=== PATIENT | male | born 1970 | race Caucasian/White ===

== ENCOUNTER 2019-01-15 08:30 | Emergency (ER) | payer BC ==
[2019-01-15 09:23] VITALS: BP 115/73
--- NOTE | 2019-01-15 10:05 | UC ---
Nausea/Vomiting/Diarrhea HPI - HPI Summary HPI Summary: 48-year-old male comes in with chief complaint of diarrhea. 2 days ago patient started with nausea. He did not vomit. He then started diarrhea on the same day. Diarrheas been watery. Has not seen any blood in the diarrhea. No fevers measured. He does get intermittent abdominal cramping but that goes away. He does feel slightly dehydrated. Yesterday he had improved some and is able to eat solid foods but overnight the diarrhea returned. Does have some nausea. Been having diarrhea about every 2 hours overnight. - History of Current Complaint Chief Complaint: UCGI Stated Complaint: DIARRHEA Time Seen by Provider: 01/15/19 09:40 Pain Intensity: 0 - Allergies/Home Medications Allergies/Adverse Reactions: Allergies Allergy/AdvReac Type Severity Reaction Status Date / Time No Known Allergies Allergy Verified 01/15/19 09:15 Home Medications: Home Medications Acetaminophen [Tylenol Extra Strength] 100 mg PO Q6H PRN 01/15/19 [History Confirmed 01/15/19] PMH/Surg Hx/FS Hx/Imm Hx Previously Healthy: Yes Cardiovascular History: Hypertension - Surgical History Surgical History: Yes Surgery Procedure, Year, and Place: dental surgery (teeth extraction) - Family History Known Family History: Positive: Non-Contributory - Social History Alcohol Use: Weekly Substance Use Type: None Smoking Status (MU): Former Smoker When Did the Patient Quit Smoking/Using Tobacco: 2008 Review of Systems All Other Systems Reviewed And Are Negative: Yes Constitutional: Positive: Other - SEE HPI Skin: Positive: Negative Eyes: Positive: Negative ENT: Positive: Negative Respiratory: Positive: Negative Cardiovascular: Positive: Negative Gastrointestinal: Positive: Abdominal Pain, Diarrhea, Nausea Genitourinary: Positive: Negative Motor: Positive: Negative Neurovascular: Positive: Negative Musculoskeletal: Positive: Negative Neurological: Positive: Negative Psychological: Positive: Negative Is Patient Immunocompromised?: No Physical Exam Triage Information Reviewed: Yes Appearance: Well-Appearing, No Pain Distress, Well-Nourished Vital Signs: Initial Vital Signs Temp 99.1 F 01/15/19 09:16 Pulse 87 01/15/19 09:16 Resp 20 01/15/19 09:16 BP 115/73 01/15/19 09:16 Pulse Ox 97 01/15/19 09:16 Vital Signs Reviewed: Yes Eye Exam: Normal Eyes: Positive: Conjunctiva Clear Neck: Positive: Supple Respiratory: Positive: Lungs clear, Normal breath sounds, No respiratory distress Cardiovascular: Positive: RRR Abdomen Description: Positive: Nontender, Soft. Negative: CVA Tenderness (R), CVA Tenderness (L) Musculoskeletal: Positive: Strength Intact, ROM Intact Neurological: Positive: Alert Psychological: Positive: Age Appropriate Behavior Skin Exam: Normal Naus/Vom/Diarrhea Course/Dx - Course Course Of Treatment: Patient has intermittent cramping abdominal pain but no focal abdominal pain that is persistent. No fevers measured. No blood in the stools seen. In clinic stool sample was obtained and sent to the lab. Going to treat with Zofran for the nausea and gastritis tolerated and get reevaluated if not improving or worse. - Differential Dx/Diagnosis Provider Diagnosis: Diarrhea Condition At Discharge: Stable Discharge ED - Sign-Out/Discharge Documenting (check all that apply): Patient Departure All imaging exams completed and their final reports reviewed: No Studies - Discharge Plan Condition: Stable Disposition: HOME Prescriptions: Ondansetron ODT TAB* [Zofran 4 MG Odt TAB*] 4 mg PO Q6H PRN #10 tab.odt PRN Reason: Nausea Patient Education Materials: Acute Nausea and Vomiting (ED), Acute Diarrhea (ED ), Abdominal Pain (ED) Forms: *Work Release Referrals: Tom Rao MD [Primary Care Provider] - Additional Instructions: FOLLOW UP WITH YOUR DOCTOR IF NOT COMPLETELY IMPROVED. GO TO THE EMERGENCY DEPARTMENT IF NOT IMPROVING OR YOUR CONDITION WORSENS; PAIN , FEVER, BLOOD IN YOUR STOOL, DEHYDRATION, YOU FEEL ILL OR ANY QUESTIONS OR CONCERNS. - Billing Disposition and Condition Condition: STABLE Disposition: Home
[2019-01-15] MEDS ORDERED: Ondansetron ODT TAB* 4 MG PO ONE (10:07)
--- NOTE | 2019-01-16 07:40 | UC ---
- Progress Note Progress Note: Stool results from January 15, 2019 comes back positive for blood and negative for C. difficile. Escherichia coli is pending stool cultures pending sugar is pending fecal lactoferrin is pending O and P is pending. Patient call patient inform the patient of the results. If the patient is not worse or is improved and we will await further results to determine if there is any need for treatment with antibiotics. If the patient is worse of fever pain he should get evaluated in the emergency department. Course/Dx - Diagnoses Provider Diagnoses: Diarrhea Discharge ED - Sign-Out/Discharge Documenting (check all that apply): Patient Departure All imaging exams completed and their final reports reviewed: No Studies - Discharge Plan Condition: Stable Disposition: HOME Prescriptions: Ondansetron ODT TAB* [Zofran 4 MG Odt TAB*] 4 mg PO Q6H PRN #10 tab.odt PRN Reason: Nausea Patient Education Materials: Acute Nausea and Vomiting (ED), Acute Diarrhea (ED ), Abdominal Pain (ED) Forms: *Work Release Referrals: Tom Rao MD [Primary Care Provider] - Additional Instructions: FOLLOW UP WITH YOUR DOCTOR IF NOT COMPLETELY IMPROVED. GO TO THE EMERGENCY DEPARTMENT IF NOT IMPROVING OR YOUR CONDITION WORSENS; PAIN , FEVER, BLOOD IN YOUR STOOL, DEHYDRATION, YOU FEEL ILL OR ANY QUESTIONS OR CONCERNS. - Billing Disposition and Condition Condition: STABLE Disposition: Home
== END 2019-01-15 10:40 | disposition home or self-care (01) ==
LOC: UCCORT 08:30
DX: K29.70 Gastritis, unspecified, without bleeding (principal); I10 Essential (primary) hypertension; Z87.891 Personal history of nicotine dependence
CPT/HCPCS: 82270; 83630; 87045; 87046; 87328; 87329; 87493; 87899; 99212; A9270-GY; G0463